=== PATIENT | female | born 1965 | race African-American/Black ===

== ENCOUNTER 2016-09-09 14:39 | Emergency (ER) | payer OTHER ==
[~2016-09-09 14:39] MED LIST: DENIES; HYDROCHLOROT12.5 MG PO; NEUR300 PO; TEG200 PO
== END 2016-09-09 15:10 | disposition home or self-care (01) ==
LOC: ER 14:39
DX: M25.511 Pain in right shoulder (principal); I10 Essential (primary) hypertension; Z79.899 Other long term (current) drug therapy
CPT/HCPCS: 73030-RT; 96372; 99284; J1885